=== PATIENT | female | born 1980 | race Caucasian/White ===

== ENCOUNTER 2019-07-25 17:49 | Emergency (ER) | payer OTHER ==
[2019-07-25 17:56] VITALS: TEMP 97.8; BMI 34.5
--- NOTE | 2019-07-25 19:12 | PDOC ---
History of Present Illness - General History Source: Patient Exam Limitations: No Limitations - History of Present Illness Initial Comments: 07/25/19 19:01 Patient is a 38 year old female with h/o asthma, hypothyroid, breast reduction, liposuction c/o dizziness - lightheadness, and pressure AN on the right side . States 8 days ago she fell hitting her head on the right side. She had a AN and nausea initally, and a swelling to the right forehead. She has been taking tylenol and icing the head and the swelling resolved but AN continued but 3 days ago started to have dizziness -lightheadedness. Denies blurred vision. Today went to Urgent care and sent to the ED for evaluation. LMP 07/05, PMD: in [place] PMHX: as above PSOCHX: neg cig, drug, etoh ALL: cipro, pcn, latex - swelling, itching GENERAL/CONSTITUTIONAL: [No fever or chills. No weakness. No weight change.] HEAD, EYES, EARS, NOSE AND THROAT: [No change in vision. No ear pain or discharge. No sore throat.] CARDIOVASCULAR: [No chest pain or shortness of breath.] RESPIRATORY: [No cough, wheezing, or hemoptysis.] GASTROINTESTINAL: [(+) nausea, vomiting, diarrhea or constipation. No rectal bleeding.] GENITOURINARY: [No dysuria, frequency, or change in urination.] MUSCULOSKELETAL: [No joint or muscle swelling or pain. No neck or back pain.] SKIN AND BREASTS: [No rash or easy bruising.] NEUROLOGIC: [(+) headache, vertigo, loss of consciousness, or loss of sensation. ] PSYCHIATRIC: [No depression or anxiety.] ENDOCRINE: [No increased thirst. No abnormal weight change.] HEMATOLOGIC/LYMPHATIC: [No anemia, easy bleeding, or history of blood clots.] ALLERGIC/IMMUNOLOGIC: [No hives or skin allergy. No latex allergy.] GENERAL: [The patient is awake, alert, and fully oriented, in no acute distress. ] HEAD: [Normal with no signs of trauma.] EYES: [Pupils equal, round and reactive to light, extraocular movements intact, sclera anicteric, conjunctiva clear.] ENT: [Ears normal, nares patent, oropharynx clear without exudates. Moist mucous membranes.] NECK: [Normal range of motion, supple without lymphadenopathy, JVD, or masses.] LUNGS: [Breath sounds equal, clear to auscultation bilaterally. No wheezes, and no crackles.] HEART: [Regular rate and rhythm, normal S1 and S2 without murmur, rub.] ABDOMEN: [Soft, nontender, normoactive bowel sounds. No guarding, no rebound. No masses.] EXTREMITIES: [Normal range of motion, no edema. No clubbing or cyanosis. No cords, erythema, or tenderness.] NEUROLOGICAL: [Cranial nerves II through XII grossly intact. Normal speech, normal gait, no nystagmus, strength 5/5 bilaterally] PSYCH: [Normal mood, normal affect.] SKIN: [Warm, Dry, normal turgor, no rashes or lesions noted.] <Amy Nguyen - Last Filed: 07/26/19 02:02> <Willard Campos - Last Filed: 07/26/19 03:12> - General Chief Complaint: Injury Stated Complaint: FALL/NAUSEA/DIZZY Past History - Past Medical History Asthma: Yes COPD: No Thyroid Disease: Yes - Psycho Social/Smoking Cessation Hx Smoking History: Never smoked <Amy Nguyen - Last Filed: 07/26/19 02:02> <Willard Campos - Last Filed: 07/26/19 03:12> - Past Medical History Allergies/Adverse Reactions: Allergies Allergy/AdvReac Type Severity Reaction Status Date / Time ciprofloxacin [From Cipro] Allergy Verified 07/25/19 17:56 latex Allergy Verified 07/25/19 17:56 Penicillins Allergy Verified 07/25/19 17:56 Home Medications: Ambulatory Orders NK [No Known Home Medication] 07/25/19 *Physical Exam - Vital Signs Last Vital Signs Temp Pulse Resp BP Pulse Ox 97.8 F 88 18 105/70 99 07/25/19 17:53 07/25/19 17:53 07/25/19 17:53 07/25/19 17:53 07/25/19 17:53 <Amy Nguyen - Last Filed: 07/26/19 02:02> - Vital Signs Last Vital Signs Temp Pulse Resp BP Pulse Ox 97.8 F 76 18 102/68 100 07/25/19 17:53 07/25/19 22:45 07/25/19 22:45 07/25/19 22:45 07/25/19 22:45 <Willard Campos - Last Filed: 07/26/19 03:12> ED Treatment Course - LABORATORY CBC & Chemistry Diagram: 07/25/19 19:45 07/25/19 19:45 <CindyAstoriaAmy spence - Last Filed: 07/26/19 02:02> - LABORATORY CBC & Chemistry Diagram: 07/25/19 19:45 07/25/19 19:45 - ADDITIONAL ORDERS Additional order review: Laboratory Results 07/25/19 19:45 Sodium 138 Potassium 4.8 Chloride 106 Carbon Dioxide 26 Anion Gap 7 L BUN 10.1 Creatinine 0.7 Est GFR (CKD-EPI)AfAm 129.19 Est GFR (CKD-EPI)NonAf 111.47 Random Glucose 87 Calcium 8.9 07/25/19 19:45 RBC 5.33 H MCV 78.6 L MCHC 32.2 RDW 17.5 H MPV 8.7 Neutrophils % 65.4 Lymphocytes % 29.0 Monocytes % 4.4 Eosinophils % 0.8 Basophils % 0.4 - Medications Given in the ED: ED Medications Discontinued Medications Generic Name Dose Route Start Last Admin Trade Name Freq PRN Reason Stop Dose Admin Acetaminophen 1,000 mg 07/25/19 19:15 07/25/19 20:40 Ofirmev Injection - IVPB 07/25/19 19:16 1,000 mg ONCE ONE Administration Metoclopramide HCl 10 mg 07/25/19 19:15 07/25/19 20:40 Reglan Injection - IVPUSH 07/25/19 19:16 10 mg ONCE ONE Administration Sodium Chloride 1,000 ml 07/25/19 19:16 07/25/19 20:40 Normal Saline - IV 07/25/19 19:17 1,000 ml ONCE ONE Administration <Willard Campos - Last Filed: 07/26/19 03:12> Medical Decision Making - Medical Decision Making 07/25/19 19:01 Patient is a 38 year old female with h/o asthma, hypothyroid, breast reduction, liposuction c/o dizziness - lightheadness, and pressure AN on the right side . States 8 days ago she fell hitting her head on the right side. She had a AN and nausea initally, and a swelling to the right forehead. She has been taking tylenol and icing the head and the swelling resolved but AN continued but 3 days ago started to have dizziness -lightheadedness. Patient also endorses photophobia and phonophobia. Denies blurred vision. Today went to Urgent care and sent to the ED for evaluation. LMP 07/05/19, Symptoms consistent with concussion syndrome CT head since symptoms have been persistent for 8 days Routine labs IV fluids, Reglan, Tylenol Reassess 07/25/19 21:41 Patient Full Name: TERESA BERG Patient Accession No: [id number] Patient : 1980 Reason for Exam: headache, dizziness Referring Physician: Patient Name: OTIS MOORE THIS IS A PRELIMINARY REPORT FROM [facility] EXAM: CT head without contrast IMAGES: 230 DATE OF EXAM: 2019-07-25 20:04:09 REASON FOR EXAM: Headaches and dizziness COMPARISON: None. FINDINGS: The brain parenchyma demonstrates normal attenuation without focal mass or mass effect. The ventricles are not enlarged. No acute intracranial hemorrhage or acute infarction. The visualized aspect of the paranasal sinuses and mastoid air cells are unremarkable. No acute fracture. One or more of the following dose reduction techniques were used: automated exposure control, adjustment of the mA and/or kV according to patient size, use of iterative reconstructive technique. THIS DOCUMENT HAS BEEN ELECTRONICALLY SIGNED Laith Easley MD 07/25/2019 20:25 EST M.D. Please call [facility] [phone] ([phone]) with questions. INTERPRETING RADIOLOGIST: Laith Easley MD Electronically Signed: Jul 25, 2019 08:27PM EST 07/25/19 21:41 07/25/19 22:37 Patient feels improved headache is resolved, she is alert and oriented x3 with steady gait, neurologically intact. I discussed the physical exam findings, ancillary test results and final diagnoses with the patient. I answered all of the patient's questions. The patient was satisfied with the care received and felt comfortable with the discharge plan and treatment plan. The Patient agrees to follow up with the primary care physician within 24-72 hours. <Amy Nguyen - Last Filed: 07/26/19 02:02> - Medical Decision Making 07/26/19 03:12 I reviewed the case of the mid-level practitioner and was available for consultation while in the emergency department <Willard Campos - Last Filed: 07/26/19 03:12> Discharge - Discharge Information Problems reviewed: Yes <GerardoAmy Mcfarland - Last Filed: 07/26/19 02:02> <Willard Campos - Last Filed: 07/26/19 03:12> - Discharge Information Clinical Impression/Diagnosis: Postconcussion syndrome Migraine headache Qualifiers: Migraine type: unspecified Status migrainosus presence: without status migrainosus Intractability: not intractable Qualified Code(s): G43.909 - Migraine, unspecified, not intractable, without status migrainosus Condition: Stable Disposition: HOME - Follow up/Referral Referrals: Laith Bains MD [Staff Physician] - - Patient Discharge Instructions Patient Printed Discharge Instructions: DI for Migraine, DI for Postconcussion Syndrome Additional Instructions: Your Discharge Instructions: You must call primary care physician within 24 hours to arrange follow-up. Return to the Emergency Department with any new, persistent or worsening symptoms, for fever, chills, SOB, dizziness or any other concerning changes that may occur. You must follow-up with a neurologist for further testing, evaluation, and treatment.
[2019-07-25] MEDS ORDERED: ACETAMINOPHEN 1000 MG/100 ML VIAL (NON FORMULARY) IVPB ONE (19:15)
[2019-07-25] MEDS ORDERED: METOCLOPRAMIDE HCL INJECTION 10 MG/2 ML VIAL IVPUSH ONE (19:15)
[2019-07-25] MEDS ORDERED: SODIUM CHLORIDE 0.9% 500 ML INFUS.BAG IV ONE (19:16)
[2019-07-25 19:57] LABS: BASO % 0.4 % (0-2.0); EOS % 0.8 % (0-4.5); HEMATOCRIT 41.9 % (32.4-45.2); HEMOGLOBIN 13.5 GM/dL (10.7-15.3); MCH 25.3 pg (25.7-33.7); MCHC 32.2 g/dl (32.0-36.0); MEAN CELL VOLUME 78.6 fl (80-96); MEAN PLT VOLUME 8.7 fl (7.5-11.1); MONO % 4.4 % (3.8-10.2); NEUT % 65.4 % (42.8-82.8); PLATELET COUNT 329 K/MM3 (134-434); RBC 5.33 M/mm3 (3.60-5.2); RDW 17.5 % (11.6-15.6); WHITE BLOOD COUNT 6.7 K/mm3 (4.0-10.0)
[2019-07-25] MEDS ORDERED: METOCLOPRAMIDE HCL INJECTION 10 MG/2 ML VIAL ONE (20:14)
[2019-07-25] MEDS ORDERED: ACETAMINOPHEN INJECTION 100 ML IVPB ONE (20:14)
[2019-07-25 20:26] LABS: BLOOD UREA NITROGEN 10.1 mg/dL (7-18); CALCIUM 8.9 mg/dL (8.5-10.1); CREATININE 0.7 mg/dL (0.55-1.3); POTASSIUM 4.8 mmol/L (3.5-5.1)
[2019-07-25 23:14] VITALS: BP 102/68; PULSE 76
== END 2019-07-25 23:00 | disposition home or self-care (01) ==
LOC: JER 17:49
PROC: 3E033NZ Introduction of Analgesics, Hypnotics, Sedatives into Peripheral Vein, Percutaneous Approach (ICD-10-PCS; principal; 2019-07-25)
PROC: 3E033GC Introduction of Other Therapeutic Substance into Peripheral Vein, Percutaneous Approach (ICD-10-PCS; 2019-07-25)
DX: G44.309 Post-traumatic headache, unspecified, not intractable (principal); F07.81 Postconcussional syndrome; W01.0XXA Fall on same level from slipping, tripping and stumbling without subsequent striking against object, initial encounter; Y93.89 Activity, other specified; Y92.031 Bathroom in apartment as the place of occurrence of the external cause; Y99.8 Other external cause status; Z88.0 Allergy status to penicillin; Z88.1 Allergy status to other antibiotic agents; Z91.040 Latex allergy status; J45.909 Unspecified asthma, uncomplicated; E03.9 Hypothyroidism, unspecified
CPT/HCPCS: 36415; 70450-TC; 80048; 85025; 96374; 96375; 99283-25; J0131